=== PATIENT | female | born 1950 | race Caucasian/White ===

== ENCOUNTER 2016-11-02 14:05 | Day surgery (SDC) | payer MEDICARE, OTHER ==
[~2016-11-02] VITALS: Ht 163.8 cm; Wt 97.5 kg
[~2016-11-02 14:05] MED LIST: 0.9% Sodium Chloride 1,000 ML IV SCH; Sodium Chloride LOK Flush 10 mL Syringe IV PRN; fentaNYL-PF 50 mCg/mL 2 mL Inj IVPUSH PRN
[2016-11-02] MEDS ORDERED: fentaNYL-PF 50 mCg/mL 2 mL Inj ONE (14:27)
[2016-11-02 14:40] VITALS: BP 155/80; PULSE 68; RESP 14; O2SAT 96
[2016-11-02] MEDS ORDERED: OMEP20TA86 PO (14:40)
[2016-11-02] MEDS ORDERED: ROPI4TAB4 PO (14:40)
[2016-11-02] MEDS ORDERED: METO50TA3 PO (14:40)
[2016-11-02] MEDS ORDERED: LEVO150T5 PO (14:40)
[2016-11-02] MEDS ORDERED: LOSA100T29 PO (14:40)
[2016-11-02] MEDS ORDERED: TRAZ-118 PO (14:40)
[2016-11-02] MEDS ORDERED: PRAM0.122 PO (14:40)
[2016-11-02] MEDS ORDERED: ACET-2766 PO (14:40)
[2016-11-02] MEDS ORDERED: 0.9% Sodium Chloride 1,000 ML IV ONE (15:02)
[2016-11-02 15:31] VITALS: BP 135/69; PULSE 63; RESP 14; O2SAT 94
[2016-11-02 15:41] VITALS: BP 138/71; PULSE 62; RESP 14; O2SAT 93
[2016-11-02 15:51] VITALS: BP 152/77; PULSE 61; RESP 14; O2SAT 96
[2016-11-02 15:58] VITALS: BP 173/87; PULSE 67; RESP 16; O2SAT 98
--- NOTE | 2016-11-02 23:24 | ENDO ---
[address] [address] ENDOSCOPY PROCEDURE PATIENT: ETHEL JAMIL : 1950 MR#: [id number] ADMIT: 11/02/2016 JOB ID: [id number] DATE OF SERVICE: 11/02/2016 TYPE OF OPERATION: Esophagogastroduodenoscopy with biopsy. PREOPERATIVE DIAGNOSIS(ES): Gastroesophageal reflux disease. POSTOPERATIVE DIAGNOSIS(ES): Multiple benign gastric polyps in the body status post biopsy. ANESTHESIA: 1. Fentanyl 75 mcg. 2. Versed 4 mg IV administered. COMPLICATIONS: None. BLOOD LOSS: Minimal. DESCRIPTION OF PROCEDURE: After risks and benefits were explained to the patient, informed consent was obtained. After anesthesia administered, upper endoscope was inserted into the mouth, intubated the esophagus, stomach, second portion of duodenum and mucosa carefully examined. After procedure was done, the scope withdrawn and procedure terminated. FINDINGS: Upon inspection of the esophagus, the esophagus appeared normal without masses, ulcers, or lesions. Z-line located 40 cm from incisors. Upon entering the stomach, there were multiple polyp polyps seen in the gastric body that appeared benign which was biopsied. No masses or ulcers were seen. Retroflexion was normal. Duodenal bulb, first and second portion normal. Biopsies were taken of the antrum and body of the stomach and distal esophagus. IMPRESSIONS: Multiple gastric polyps in the body, benign, status post biopsy. RECOMMENDATION: Await pathology results. Follow up in GI clinic as needed.
--- NOTE | 2016-11-04 10:03 | PATH ---
SURGICAL PATHOLOGY Attending Physician:Paulo Urias MD CASE STATUS: Signed Out PATIENT NAME: ETHEL JAMIL PID: [id number] : 1950 DATE COLLECTED:11/02/2016 00:00 SPECIMEN: 1: Stomach, Antrum, Biopsy 2: Gastric, Biopsy 3: Esophagus, Biopsy 4: Stomach, Polyp, Biopsy CLINICAL HISTORY: 1. ANTRUM BXS 2. GASTRIC BODY BXS 3. DISTAL ESOPHAGUS BXS 4. GASTRIC POLYP FINAL DIAGNOSIS: 1.GASTRIC ANTRUM BIOPSIES: MILD CHRONIC GASTRITIS INVOLVING ANTRAL MUCOSA. Negative for evidence of Helicobacter. Negative for intestinal metaplasia. Negative for dysplasia and malignancy. 2.GASTRIC BODY BIOPSIES: MINIMAL FOCAL CHRONIC GASTRITIS INVOLVING FUNDIC MUCOSA. Negative for evidence of Helicobacter. Negative for intestinal metaplasia. Negative for dysplasia and malignancy. 3.DISTAL ESOPHAGUS BIOPSIES: FRAGMENTS OF SQUAMOUS MUCOSA WITH CHRONIC INFLAMMATION, REACTIVE EPITHELIAL CHANGES, AND RARE INTRAEPITHELIAL EOSINOPHILS, ALL CONSISTENT WITH CHANGES OF CHRONIC REFLUX. NO GASTRIC-TYPE MUCOSA IDENTIFIED. Negative for dysplasia and malignancy. 4.GASTRIC POLYP: FUNDIC GLAND POLYP, NEGATIVE FOR ATYPIA. Negative for evidence of Helicobacter. Negative for intestinal metaplasia. Negative for malignancy. ICD10 K21.0 K31.7 GROSS DESCRIPTION: The specimen is received in four formalin filled containers labeled with the patient's name. 1). The specimen is sublabeled "antrum" and consists of a 0.2 x 0.2 x 0.2 CM portion of tissue which is entirely submitted in cassette 1A. 2). The specimen is sublabeled "gastric body" and consists of a 0.3 x 0.3 x 0.2 CM portion of tissue which is entirely submitted in cassette tissue A. 3). The specimen is sublabeled "distal esophagus" and consists of a 0.2 x 0.2 x 0.2 CM portion of tissue which is entirely submitted in cassettes 3A. 4). The specimen is sublabeled "gastric polyps" and consists of a 0.3 x 0.3 x 0.2 CM portion of tissue which is entirely submitted in cassette 4A. 11/03/2016 DAC MICRO DESCRIPTION: See diagnosis. ICD-9 CODES: CPT CODES: 1: 62386 2: 56436 3: 98413 4: 13180 Electronically Signed Out Arsenio Mclaughlin MD Located Within [facility] [address], [place] [address] Technical component performed at [facility], [address], [place], [address]
== END 2016-11-02 23:59 | disposition home or self-care (01) ==
LOC: END 14:05
PROVIDERS: ATTEND Internal Medicine Gastroenterology
DX: K29.50 Unspecified chronic gastritis without bleeding (principal); K31.7 Polyp of stomach and duodenum; K21.9 Gastro-esophageal reflux disease without esophagitis; I10 Essential (primary) hypertension; I49.8 Other specified cardiac arrhythmias; I51.7 Cardiomegaly; G47.33 Obstructive sleep apnea (adult) (pediatric); R73.03 Prediabetes; E06.3 Autoimmune thyroiditis; G25.81 Restless legs syndrome; M19.90 Unspecified osteoarthritis, unspecified site
CPT/HCPCS: 43239; G0500; J2250; J3010; J7030